=== PATIENT | male | born 1970 | race American Indian/Alaskan Native ===

== ENCOUNTER 2019-07-15 06:40 | Inpatient (IN) | payer MEDICAID, SELFPAY ==
[~2019-07-15] VITALS: Ht 167.6 cm; Wt 158.3 kg
[2019-07-15 06:45] VITALS: BP 112/60
[2019-07-15 08:02] LABS: HEMATOCRIT 30.9 % (36-52); HEMOGLOBIN 10.4 g/dL (12.0-18.0); MEAN CORPUSCULAR HEMOGLOBIN 28 pg (27-31); MEAN CORPUSCULAR HGB CONC 34 g/dL (33-37); MEAN CORPUSCULAR VOLUME 84.4 fL (80-94); RED BLOOD CELL COUNT(AUTO) 3.67 MIL/uL (4.20-6.10); RED CELL DISTRIBUTION WIDTH 15.7 % (11.6-13.7); WHITE BLOOD COUNT (AUTO) 19.1 K/uL (4.8-10.8)
[2019-07-15 08:23] LABS: LYMPHOCYTES % (MANUAL) 14 % (20-46); MONOCYTES % (MANUAL) 7 % (5-12); PLATELET COUNT (AUTO) 40 K/uL (140-450)
[2019-07-15 08:28] LABS: ALBUMIN 1.5 g/dL (3.4-5.0); ANION GAP 24.3 (8-16); CARBON DIOXIDE 16.7 mmol/L (21-32); TOTAL BILIRUBIN 21.1 mg/dL (0.0-1.0)
[2019-07-15 08:30] LABS: CREATININE 5.9 mg/dL (0.6-1.3)
[2019-07-15 08:49] LABS: LACTATE DEHYDROGENASE 340 U/L (85-227)
[2019-07-15] MEDS ORDERED: VANCOMYCIN 1,000 MG in DEXTROSE 5% 250 ML IV ONE (09:05)
[2019-07-15] MEDS ORDERED: DEXTROSE 50% 50 ML SYR IVP ONE (09:05)
[2019-07-15] MEDS ORDERED: PIPERACILLIN/TAZOBACTAM 3.375 GM in DEXTROSE 5% 50 ML IV ONE (09:05)
[2019-07-15] MEDS ORDERED: PIPERACILLIN/TAZOBACTAM 3.375 GM VIAL IV ONE (09:17)
[2019-07-15] MEDS ORDERED: VANCOMYCIN 1,000 MG VIAL ONE (09:18)
[2019-07-15 09:36] LABS: PROTHROMBIN TIME 14.9 secs (10.8-13.4)
[2019-07-15] MEDS ORDERED: NACL 0.9% 1,000 ML IV SCH (10:04)
[2019-07-15] MEDS ORDERED: ALBUTEROL HFA MDI 90 MCG/ACTUATION 8 GM INH PRN (10:05)
[2019-07-15] MEDS ORDERED: HYDROcodone/APAP 7.5/325 MG 1 TAB PO PRN (10:05)
[2019-07-15] MEDS ORDERED: DOCUSATE SODIUM 100 MG GELCAP PO PRN (10:05)
[2019-07-15] MEDS ORDERED: ONDANSETRON 4 MG/2 ML VIAL IM/IVP PRN (10:05)
[2019-07-15] MEDS ORDERED: ACETAMINOPHEN 325 MG TAB PO PRN (10:05)
[2019-07-15] MEDS ORDERED: MORPHINE SULFATE 2 MG/ML SYR IVP PRN (10:05)
[2019-07-15 10:39] LABS: MAGNESIUM 2.1 mg/dL (1.8-2.4); THYROID STIMULATING HORMONE 0.13 uIU/mL (0.34-3.74)
[2019-07-15 10:59] LABS: APPEARANCE,URINE HAZY (CLEAR); BILIRUBIN,URINE 3+ (NEGATIVE); BLOOD, URINE 2+ (NEGATIVE); COLOR,URINE AMBER (YELLOW); LEUKOCYTE ESTERASE ,URINE 1+ (NEGATIVE); NITRITE, URINE NEGATIVE (NEGATIVE); PH,URINE 5.5 (5.0-9.0); UGLUCOSE NEGATIVE (NEGATIVE)
[2019-07-15 11:08] LABS: URINE AMORPHOUS URATE 1+ /HPF (None Seen)
[2019-07-15] MEDS ORDERED: METH10TA1 PO (11:26)
[2019-07-15 11:28] LABS: BARBITURATE, URINE NEGATIVE ng/ml (NEG <=200); BENZODIAZEPINE, URINE NEGATIVE ng/mL (NEG <=200); CANNABINOID, URINE NEGATIVE ng/mL (NEG <=50); COCAINE, URINE NEGATIVE ng/mL (NEG <=300); OPIATE, URINE POSITIVE ng/mL (NEG <=2000); PHENCYCLIDINE SCREEN,URINE NEGATIVE ng/mL (NEG <=25)
[2019-07-15] MEDS: FUROSEMIDE 40 MG/4 ML VIAL IVP SCH (11:35)
[2019-07-15] MEDS ORDERED: cefTRIAXone 1,000 MG VIAL ONE (11:40)
[2019-07-15] MEDS ORDERED: AZITHROMYCIN 500 MG in DEXTROSE 5% 250 ML IV SCH (12:00)
[2019-07-15] MEDS ORDERED: AZITHROMYCIN 500 MG INJ VIAL IV ONE (12:22)
[2019-07-15] MEDS ORDERED: METHADONE 10 MG TAB PO SCH (13:38)
[2019-07-15] MEDS ORDERED: LORazepam 2 MG/ML VIAL IVP PRN (14:20)
[2019-07-15 16:00] VITALS: BP 135/84
[2019-07-15 20:00] VITALS: BP 129/73
[2019-07-16] VITALS: BP 131/72
[2019-07-16 04:00] VITALS: BP 117/79
[2019-07-16 06:07] LABS: HEPATITIS A ANTIBODY IGM Negative (Negative); HEPATITIS B CORE AB TOTAL Negative (Negative); HEPATITIS B SURFACE ANTIBODY Non Reactive (.); HEPATITIS B SURFACE ANTIGEN Negative (Negative)
[2019-07-16 07:08] LABS: MEAN CORPUSCULAR HEMOGLOBIN 28 pg (27-31); MEAN CORPUSCULAR HGB CONC 33 g/dL (33-37); MEAN CORPUSCULAR VOLUME 84.3 fL (80-94); RED BLOOD CELL COUNT(AUTO) 3.56 MIL/uL (4.20-6.10); RED CELL DISTRIBUTION WIDTH 15.8 % (11.6-13.7); WHITE BLOOD COUNT (AUTO) 23.2 K/uL (4.8-10.8)
[2019-07-16 07:28] LABS: ALBUMIN 1.4 g/dL (3.4-5.0); ANION GAP 22.5 (8-16); CARBON DIOXIDE 16.5 mmol/L (21-32); CHOL/HDL RATIO 2.8 (1-4.5); MAGNESIUM 2.3 mg/dL (1.8-2.4); PHOSPHORUS 7.7 mg/dL (2.5-4.9)
[2019-07-16 07:55] LABS: CREATININE 5.6 mg/dL (0.6-1.3)
[2019-07-16 08:00] VITALS: BP 147/81
[2019-07-16 08:21] LABS: PLATELET COUNT (AUTO) 45 K/uL (140-450)
[2019-07-16 08:22] LABS: LYMPHOCYTES % (MANUAL) 8 % (20-46); MONOCYTES % (MANUAL) 6 % (5-12)
[2019-07-16] MEDS ORDERED: VITAMIN D 400 IU TAB PO SCH (09:00)
[2019-07-16] MEDS ORDERED: ENOXAPARIN 40 MG/0.4 ML SYR SUBQ SCH (09:00)
[2019-07-16] MEDS ORDERED: CHOLECALCIFEROL 1,000 IU TAB ONE (10:07)
[2019-07-16] MEDS: CHOLECALCIFEROL 1,000 IU TAB PO SCH (10:16)
[2019-07-16] MEDS: FUROSEMIDE 40 MG/4 ML VIAL IVP SCH (10:16)
[2019-07-16] MEDS: ZINC SULF 220 MG CAP PO SCH (10:17)
[2019-07-16] MEDS: ASCORBIC ACID 500 MG TAB PO SCH (10:17)
[2019-07-16] MEDS: METHADONE 10 MG TAB PO SCH (10:18)
[2019-07-16 12:00] VITALS: BP 130/71
[2019-07-16 16:00] VITALS: BP 116/58
[2019-07-16 20:00] VITALS: BP 108/61
[2019-07-16] MEDS ORDERED: VANCOMYCIN PER PHARMACY MC PRN (23:00)
[2019-07-17] VITALS: BP 125/67
[2019-07-17] MEDS ORDERED: VANCOMYCIN HCL 2,000 MG in NACL 0.9% 500 ML IV SCH (00:30)
[2019-07-17] MEDS ORDERED: VANCOMYCIN 1,000 MG VIAL ONE (00:45)
[2019-07-17 04:00] VITALS: BP 126/61
[2019-07-17 07:39] LABS: HEMATOCRIT 24.6 % (36-52); HEMOGLOBIN 8.3 g/dL (12.0-18.0); MEAN CORPUSCULAR HEMOGLOBIN 29 pg (27-31); MEAN CORPUSCULAR HGB CONC 34 g/dL (33-37); MEAN CORPUSCULAR VOLUME 84.5 fL (80-94); RED BLOOD CELL COUNT(AUTO) 2.92 MIL/uL (4.20-6.10)
[2019-07-17 08:00] VITALS: BP 130/62
[2019-07-17 08:20] LABS: MAGNESIUM 2.6 mg/dL (1.8-2.4)
[2019-07-17] MEDS: FUROSEMIDE 40 MG/4 ML VIAL IVP SCH (08:51)
[2019-07-17] MEDS: METHADONE 10 MG TAB PO SCH (08:52)
[2019-07-17] MEDS: CHOLECALCIFEROL 1,000 IU TAB PO SCH (08:53)
[2019-07-17] MEDS: ASCORBIC ACID 500 MG TAB PO SCH (08:53)
[2019-07-17] MEDS: ZINC SULF 220 MG CAP PO SCH (08:53)
[2019-07-17 09:19] LABS: WHITE BLOOD COUNT (AUTO) 32.8 K/uL (4.8-10.8)
[2019-07-17 09:20] LABS: PLATELET COUNT (AUTO) 44 K/uL (140-450)
[2019-07-17 09:24] LABS: CARBON DIOXIDE 15.1 mmol/L (21-32); LYMPHOCYTES % (MANUAL) 11 % (20-46); MONOCYTES % (MANUAL) 7 % (5-12)
[2019-07-17 09:59] LABS: CREATININE 5.4 mg/dL (0.6-1.3); PHOSPHORUS 9.2 mg/dL (2.5-4.9)
[2019-07-17 10:00] LABS: ANION GAP 24.9 (8-16)
[2019-07-17 12:00] VITALS: BP 138/64
[2019-07-17 15:13] LABS: ANTI-NUCLEAR ANTIBODY,DIRECT Negative (Negative)
[2019-07-17 16:00] VITALS: BP 109/63
[2019-07-17 20:00] VITALS: BP 170/90
[2019-07-18] VITALS: BP 140/90
[2019-07-18 04:00] VITALS: BP 93/47
[2019-07-18 07:42] LABS: HEMATOCRIT 20.8 % (36-52); HEMOGLOBIN 7.1 g/dL (12.0-18.0); MEAN CORPUSCULAR HEMOGLOBIN 29 pg (27-31); MEAN CORPUSCULAR HGB CONC 34 g/dL (33-37); MEAN CORPUSCULAR VOLUME 84.6 fL (80-94); PLATELET COUNT (AUTO) 41 K/uL (140-450); RED BLOOD CELL COUNT(AUTO) 2.46 MIL/uL (4.20-6.10); RED CELL DISTRIBUTION WIDTH 15.7 % (11.6-13.7)
[2019-07-18 07:46] LABS: CARBON DIOXIDE 19.8 mmol/L (21-32); POTASSIUM 4.8 mmol/L (3.5-5.1)
[2019-07-18 07:53] LABS: CREATININE 4.7 mg/dL (0.6-1.3)
[2019-07-18 08:00] VITALS: BP 103/53
[2019-07-18 08:10] LABS: MAGNESIUM 2.2 mg/dL (1.8-2.4); PHOSPHORUS 8.4 mg/dL (2.5-4.9)
[2019-07-18] MEDS: ZINC SULF 220 MG CAP PO SCH (08:19)
[2019-07-18] MEDS: ASCORBIC ACID 500 MG TAB PO SCH (08:20)
[2019-07-18] MEDS: CHOLECALCIFEROL 1,000 IU TAB PO SCH (08:20)
[2019-07-18] MEDS: FUROSEMIDE 40 MG/4 ML VIAL IVP SCH (08:22)
[2019-07-18] MEDS: METHADONE 10 MG TAB PO SCH (08:22)
[2019-07-18 08:37] LABS: WHITE BLOOD COUNT (AUTO) 33.6 K/uL (4.8-10.8)
[2019-07-18 08:42] LABS: LYMPHOCYTES % (MANUAL) 4 % (20-46); MONOCYTES % (MANUAL) 10 % (5-12)
[2019-07-18 12:00] VITALS: BP 97/44
[2019-07-18] MEDS ORDERED: VANCOMYCIN 1,500 MG in DEXTROSE 5% 500 ML IV SCH (12:00)
[2019-07-18 16:00] VITALS: BP 103/45
[2019-07-18 20:00] VITALS: BP 91/49
[2019-07-18 20:54] LABS: HEMATOCRIT 21.2 % (36-52); HEMOGLOBIN 7.1 g/dL (12.0-18.0)
[2019-07-19] VITALS: BP 90/44
[2019-07-19 04:00] VITALS: BP 101/67
[2019-07-19 07:11] LABS: HEMATOCRIT 21.6 % (36-52); HEMOGLOBIN 7.2 g/dL (12.0-18.0); MEAN CORPUSCULAR HEMOGLOBIN 29 pg (27-31); MEAN CORPUSCULAR HGB CONC 34 g/dL (33-37); MEAN CORPUSCULAR VOLUME 85.1 fL (80-94); PLATELET COUNT (AUTO) 62 K/uL (140-450); RED BLOOD CELL COUNT(AUTO) 2.54 MIL/uL (4.20-6.10); RED CELL DISTRIBUTION WIDTH 16.2 % (11.6-13.7)
[2019-07-19 07:16] LABS: MAGNESIUM 2.5 mg/dL (1.8-2.4)
[2019-07-19 07:43] LABS: CARBON DIOXIDE 15.9 mmol/L (21-32); POTASSIUM 4.9 mmol/L (3.5-5.1)
[2019-07-19 07:52] LABS: WHITE BLOOD COUNT (AUTO) 40.8 K/uL (4.8-10.8)
[2019-07-19 07:53] LABS: LYMPHOCYTES % (MANUAL) 17 % (20-46); MONOCYTES % (MANUAL) 6 % (5-12)
[2019-07-19 08:00] VITALS: BP 117/62
[2019-07-19 08:14] LABS: PHOSPHORUS 10.8 mg/dL (2.5-4.9)
[2019-07-19 08:15] LABS: CREATININE 6.1 mg/dL (0.6-1.3)
[2019-07-19] MEDS: ZINC SULF 220 MG CAP PO SCH (08:49)
[2019-07-19] MEDS: METHADONE 10 MG TAB PO SCH (08:49)
[2019-07-19] MEDS: CHOLECALCIFEROL 1,000 IU TAB PO SCH (08:50)
[2019-07-19] MEDS: ASCORBIC ACID 500 MG TAB PO SCH (08:51)
[2019-07-19 09:06] LABS: ANTI-GLUMERULAR BASE MEM AB QN 3 units (0-20)
[2019-07-19 12:00] VITALS: BP 99/74
[2019-07-19 16:00] VITALS: BP 103/56
[2019-07-19] MEDS: FUROSEMIDE 40 MG/4 ML VIAL IVP SCH (16:33)
[2019-07-19 20:00] VITALS: BP 103/53
[2019-07-19] MEDS: NAFCILLIN 2,000 MG in DEXTROSE 5% 100 ML IV SCH (20:55)
[2019-07-19] MEDS ORDERED: LEVOFLOXACIN 750 MG/D5W PREMIX 150 ML IV SCH (22:00)
[2019-07-19] MEDS ORDERED: CALCIUM CHLORIDE 10% 1,000 MG in NACL 0.9% 100 ML IV SCH (23:30)
[2019-07-20] VITALS: BP 89/37
[2019-07-20] MEDS ORDERED: NACL 0.9% 250 ML IV SCH (00:25)
[2019-07-20] MEDS: NAFCILLIN 2,000 MG in DEXTROSE 5% 100 ML IV SCH ×6 (01:19→20:31)
[2019-07-20 04:00] VITALS: BP 97/61
[2019-07-20 06:06] LABS: MEAN CORPUSCULAR HEMOGLOBIN 28 pg (27-31); MEAN CORPUSCULAR HGB CONC 34 g/dL (33-37); MEAN CORPUSCULAR VOLUME 84.5 fL (80-94); PLATELET COUNT (AUTO) 86 K/uL (140-450); RED BLOOD CELL COUNT(AUTO) 2.21 MIL/uL (4.20-6.10); RED CELL DISTRIBUTION WIDTH 16.1 % (11.6-13.7)
[2019-07-20 06:40] LABS: ANION GAP 19.7 (8-16); CARBON DIOXIDE 20.5 mmol/L (21-32); POTASSIUM 4.2 mmol/L (3.5-5.1)
[2019-07-20 06:52] LABS: MAGNESIUM 2.1 mg/dL (1.8-2.4); PHOSPHORUS 8.8 mg/dL (2.5-4.9)
[2019-07-20 07:45] LABS: HEMATOCRIT 18.6 % (36-52); HEMOGLOBIN 6.3 g/dL (12.0-18.0); WHITE BLOOD COUNT (AUTO) 34.2 K/uL (4.8-10.8)
[2019-07-20 07:46] LABS: LYMPHOCYTES % (MANUAL) 9 % (20-46); MONOCYTES % (MANUAL) 9 % (5-12)
[2019-07-20 07:49] LABS: CREATININE 5.2 mg/dL (0.6-1.3)
[2019-07-20 08:00] VITALS: BP 100/51
[2019-07-20] MEDS: ZINC SULF 220 MG CAP PO SCH (08:48)
[2019-07-20] MEDS: METHADONE 10 MG TAB PO SCH ×2 (08:48→09:00)
[2019-07-20] MEDS: ASCORBIC ACID 500 MG TAB PO SCH (08:48)
[2019-07-20] MEDS: CHOLECALCIFEROL 1,000 IU TAB PO SCH (08:49)
[2019-07-20] MEDS: FUROSEMIDE 40 MG/4 ML VIAL IVP SCH (08:49)
[2019-07-20 09:14] LABS: PROTHROMBIN TIME 23.7 secs (10.8-13.4)
[2019-07-20 09:21] LABS: ALBUMIN 1.2 g/dL (3.4-5.0); BILIRUBIN,DIRECT 19.9 mg/dL (0.0-0.3); TOTAL BILIRUBIN 24.2 mg/dL (0.0-1.0)
[2019-07-20 12:00] VITALS: BP 105/52
[2019-07-20] MEDS ORDERED: cefTRIAXone 2,000 MG in DEXTROSE 5% 100 ML IV SCH (12:00)
[2019-07-20] MEDS ORDERED: PHYTONADIONE 10 MG/ML AMP SUBQ SCH (13:00)
[2019-07-20] MEDS ORDERED: PHYTONADIONE 10 MG/ML AMP IV ONE (13:55)
[2019-07-20 16:00] VITALS: BP 119/62
[2019-07-20] MEDS: LACTULOSE 20 GM/30 ML UDC PO SCH (17:00)
[2019-07-20] MEDS ORDERED: PHYTONADIONE 10 MG in NACL 0.9% 50 ML IV SCH (18:00)
[2019-07-20 20:00] VITALS: BP 118/58
[2019-07-20 23:58] LABS: APPEARANCE,URINE CLOUDY (CLEAR); BILIRUBIN,URINE 3+ (NEGATIVE); BLOOD, URINE 1+ (NEGATIVE); COLOR,URINE BROWN (YELLOW); LEUKOCYTE ESTERASE ,URINE TRACE (NEGATIVE); NITRITE, URINE NEGATIVE (NEGATIVE); UGLUCOSE TRACE (NEGATIVE)
[2019-07-21] VITALS: BP 101/57
[2019-07-21 00:22] LABS: URINE AMORPHOUS URATE 1+ /HPF (None Seen)
[2019-07-21] MEDS: NAFCILLIN 2,000 MG in DEXTROSE 5% 100 ML IV SCH ×6 (00:44→20:19)
[2019-07-21 04:13] VITALS: BP 117/61
[2019-07-21 06:42] LABS: HEMATOCRIT 21.8 % (36-52); HEMOGLOBIN 7.4 g/dL (12.0-18.0); MEAN CORPUSCULAR HEMOGLOBIN 29 pg (27-31); MEAN CORPUSCULAR HGB CONC 34 g/dL (33-37); PLATELET COUNT (AUTO) 123 K/uL (140-450); RED BLOOD CELL COUNT(AUTO) 2.54 MIL/uL (4.20-6.10); RED CELL DISTRIBUTION WIDTH 16.2 % (11.6-13.7)
[2019-07-21 06:45] LABS: PROTHROMBIN TIME 12.1 secs (10.8-13.4)
[2019-07-21 06:54] LABS: MAGNESIUM 1.8 mg/dL (1.8-2.4); PHOSPHORUS 7.2 mg/dL (2.5-4.9)
[2019-07-21 07:26] LABS: ALBUMIN 1.2 g/dL (3.4-5.0); ANION GAP 19.7 (8-16); CARBON DIOXIDE 22.3 mmol/L (21-32); TOTAL BILIRUBIN 23.3 mg/dL (0.0-1.0)
[2019-07-21 07:34] LABS: CREATININE 4.9 mg/dL (0.6-1.3)
[2019-07-21 07:47] LABS: EOSINOPHILS % (MANUAL) 1 % (0-4); LYMPHOCYTES % (MANUAL) 10 % (20-46); MONOCYTES % (MANUAL) 8 % (5-12)
[2019-07-21 08:00] VITALS: BP 103/61
[2019-07-21] MEDS: ZINC SULF 220 MG CAP PO SCH (08:45)
[2019-07-21] MEDS: CHOLECALCIFEROL 1,000 IU TAB PO SCH (08:46)
[2019-07-21] MEDS: ASCORBIC ACID 500 MG TAB PO SCH (08:46)
[2019-07-21] MEDS: METHADONE 10 MG TAB PO SCH (08:47)
[2019-07-21] MEDS: FUROSEMIDE 40 MG/4 ML VIAL IVP SCH (08:48)
[2019-07-21] MEDS: LACTULOSE 20 GM/30 ML UDC PO SCH ×3 (08:57→18:06)
[2019-07-21 12:00] VITALS: BP 114/62
[2019-07-21 16:00] VITALS: BP 117/71
[2019-07-21 20:00] VITALS: BP 126/65
[2019-07-21] MEDS ORDERED: LEVOFLOXACIN 500 MG/D5W PREMIX 100 ML IV SCH (22:00)
[2019-07-22] VITALS (7 sets, daily range): BP systolic 114–125; BP diastolic 57–66
[2019-07-22] MEDS: NAFCILLIN 2,000 MG in DEXTROSE 5% 100 ML IV SCH ×6 (00:37→20:34)
[2019-07-22 06:21] LABS: HEMATOCRIT 22.7 % (36-52); HEMOGLOBIN 7.6 g/dL (12.0-18.0); MEAN CORPUSCULAR HEMOGLOBIN 29 pg (27-31); MEAN CORPUSCULAR HGB CONC 34 g/dL (33-37); MEAN CORPUSCULAR VOLUME 87.3 fL (80-94); PLATELET COUNT (AUTO) 152 K/uL (140-450); RED CELL DISTRIBUTION WIDTH 16.6 % (11.6-13.7)
[2019-07-22 07:14] LABS: MAGNESIUM 1.9 mg/dL (1.8-2.4); PHOSPHORUS 7.8 mg/dL (2.5-4.9)
[2019-07-22 07:16] LABS: ANION GAP 20.1 (8-16); CARBON DIOXIDE 20.1 mmol/L (21-32); POTASSIUM 4.2 mmol/L (3.5-5.1)
[2019-07-22 07:29] LABS: LYMPHOCYTES % (MANUAL) 7 % (20-46); WHITE BLOOD COUNT (AUTO) 33.4 K/uL (4.8-10.8)
[2019-07-22 07:30] LABS: EOSINOPHILS % (MANUAL) 2 % (0-4); MONOCYTES % (MANUAL) 5 % (5-12)
[2019-07-22 08:02] LABS: CREATININE 4.9 mg/dL (0.6-1.3)
[2019-07-22] MEDS: FUROSEMIDE 40 MG/4 ML VIAL IVP SCH ×2 (09:00→09:52)
[2019-07-22] MEDS: LACTULOSE 20 GM/30 ML UDC PO SCH ×3 (09:50→17:23)
[2019-07-22] MEDS: ASCORBIC ACID 500 MG TAB PO SCH (09:52)
[2019-07-22] MEDS: ZINC SULF 220 MG CAP PO SCH (09:52)
[2019-07-22] MEDS: METHADONE 10 MG TAB PO SCH (09:52)
[2019-07-22] MEDS: CHOLECALCIFEROL 1,000 IU TAB PO SCH (09:52)
[2019-07-22] MEDS ORDERED: EPOETIN ALFA 10,000 UNITS/ML VIAL IV SCH (10:35)
[2019-07-22] MEDS ORDERED: ACET-1182 PO (16:09)
[2019-07-22] MEDS ORDERED: FURO-570 PO (16:09)
[2019-07-22] MEDS ORDERED: LACT10SO11 PO (16:09)
[2019-07-22] MEDS ORDERED: ONDA4TAB PO (16:09)
[2019-07-22] MEDS ORDERED: DOL10 PO (16:09)
== END 2019-07-22 21:50 | disposition hospice, home (50) | DRG 720 ==
LOC: EEVIPCON 06:40 → MED 06:40 → MTU 10:10
PROVIDERS: ADMIT General Practice; ATTEND General Practice
PROC: 5A1D70Z Performance of Urinary Filtration, Intermittent, Less than 6 Hours Per Day (ICD-10-PCS; 2019-07-17)
PROC: 02HV33Z Insertion of Infusion Device into Superior Vena Cava, Percutaneous Approach (ICD-10-PCS; 2019-07-17)
PROC: B548ZZA Ultrasonography of Superior Vena Cava, Guidance (ICD-10-PCS; 2019-07-17)
PROC: 5A1D70Z Performance of Urinary Filtration, Intermittent, Less than 6 Hours Per Day (ICD-10-PCS; 2019-07-19)
PROC: 02HV33Z Insertion of Infusion Device into Superior Vena Cava, Percutaneous Approach (ICD-10-PCS; 2019-07-19)
PROC: B548ZZA Ultrasonography of Superior Vena Cava, Guidance (ICD-10-PCS; 2019-07-19)
PROC: 30233N1 Transfusion of Nonautologous Red Blood Cells into Peripheral Vein, Percutaneous Approach (ICD-10-PCS; principal; 2019-07-20)
PROC: 5A1D70Z Performance of Urinary Filtration, Intermittent, Less than 6 Hours Per Day (ICD-10-PCS; 2019-07-20)
PROC: 5A1D70Z Performance of Urinary Filtration, Intermittent, Less than 6 Hours Per Day (ICD-10-PCS; 2019-07-21)
PROC: 5A1D70Z Performance of Urinary Filtration, Intermittent, Less than 6 Hours Per Day (ICD-10-PCS; 2019-07-22)
DX: A41.01 Sepsis due to Methicillin susceptible Staphylococcus aureus (principal); K72.00 Acute and subacute hepatic failure without coma; N17.0 Acute kidney failure with tubular necrosis; E43 Unspecified severe protein-calorie malnutrition; I50.43 Acute on chronic combined systolic (congestive) and diastolic (congestive) heart failure; D68.9 Coagulation defect, unspecified; J18.9 Pneumonia, unspecified organism; E66.01 Morbid (severe) obesity due to excess calories; E87.1 Hypo-osmolality and hyponatremia; K74.60 Unspecified cirrhosis of liver; Z66 Do not resuscitate; Z51.5 Encounter for palliative care; L03.115 Cellulitis of right lower limb; Z68.43 Body mass index [BMI] 50.0-59.9, adult; B17.9 Acute viral hepatitis, unspecified; B19.20 Unspecified viral hepatitis C without hepatic coma; F10.20 Alcohol dependence, uncomplicated; F11.10 Opioid abuse, uncomplicated; F15.10 Other stimulant abuse, uncomplicated; K80.20 Calculus of gallbladder without cholecystitis without obstruction; L97.909 Non-pressure chronic ulcer of unspecified part of unspecified lower leg with unspecified severity; Z71.51 Drug abuse counseling and surveillance of drug abuser; D69.6 Thrombocytopenia, unspecified; D64.9 Anemia, unspecified; I87.2 Venous insufficiency (chronic) (peripheral); Z03.818 Encounter for observation for suspected exposure to other biological agents ruled out; Z99.2 Dependence on renal dialysis; R65.20 Severe sepsis without septic shock; E83.51 Hypocalcemia; E83.39 Other disorders of phosphorus metabolism; E83.41 Hypermagnesemia; L03.116 Cellulitis of left lower limb; N18.4 Chronic kidney disease, stage 4 (severe); Y90.9 Presence of alcohol in blood, level not specified; I38 Endocarditis, valve unspecified; J32.0 Chronic maxillary sinusitis; E05.90 Thyrotoxicosis, unspecified without thyrotoxic crisis or storm
CPT/HCPCS: 36415; 70450; 71045; 73620; 76705; 76770; 80048; 80053; 80076; 80202; 80305; 81001; 82140; 82436; 82550; 82728; 82948; 83036; 83516; 83605; 83615; 83735; 83880; 84100; 84300; 84439; 84443; 84484; 85018; 85025; 85379; 85384; 85610; 85651; 85730; 86038; 86140; 86160; 86702; 86704; 86706; 86708; 86709; 86803; 86886; 86900; 86901; 86920; 87040; 87081; 87086; 87186; 87340; 90935; 93005; 93925; 93970; 96365; 96375; 99291; C1751; J0456; J0696; J0885; J1642; J1940; J1956; J2060; J2543; J3370; J3430; J3490; J7030; J7060; P9016; Q0092; U0003-CS